=== PATIENT | male | born 1995 | race African-American/Black ===

== ENCOUNTER 2020-04-18 20:14 | Emergency (ER) | payer OTHER ==
[~2020-04-18] VITALS: Ht 180.3 cm; Wt 138.3 kg
[2020-04-18] MEDS ORDERED: ERYTHROMYCIN E3.5 G3 OPHTHALMIC (22:03)
[2020-04-18 22:50] VITALS: BP 136/70
== END 2020-04-18 22:50 | disposition home or self-care (01) ==
LOC: ER 20:14
DX: H00.015 Hordeolum externum left lower eyelid (principal); I10 Essential (primary) hypertension